=== PATIENT | female | born 1995 | race Hispanic/Latino ===

== ENCOUNTER 2019-07-03 12:42 | Outpatient (CLI) | payer OTHER ==
[~2019-07-03] VITALS: Ht 167.6 cm; Wt 73.2 kg
[2019-07-03 13:09] VITALS: BP 112/53
[2019-07-03] MEDS ORDERED: MAPA500T2 PO (13:38)
[2019-07-03] MEDS ORDERED: PRENTAB9 PO (13:38)
[2019-07-03] MEDS ORDERED: ACETAMINOPHEN 500 MG TAB PO PRN (13:45)
[2019-07-03] MEDS ORDERED: diphenhydrAMINE 25 MG CAP PO ONE (13:45)
[2019-07-03 14:53] VITALS: BP 116/59
[2019-07-03] MEDS ORDERED: METOCLOPRAMIDE 10 MG TAB PO ONE (15:00)
[2019-07-03 16:07] VITALS: BP 82/47
[2019-07-03 16:08] VITALS: BP 81/43
[2019-07-03 17:06] VITALS: BP 99/58
--- NOTE | 2019-07-03 18:18 | IPNPDOC ---
Text Note Date of Service The patient was seen on 07/03/19. NOTE patient is a 23 yo G1 @35+wks gestation presents with concern for DICK (12/13) x 1 week. patient has been taking tylenol as needed for DICK. patient denies ctx/lof/vb. +FM. vitals: normal NAD abd: nd, soft, nt fht: 140/mod lakeisha/pos accel/no decel toco: quiet patient was given acetamenophen, reglan and benadryl and allowed to rest. Patient was evaluated after rest and her DICK has improved. a/p patient is @ 35+wks gestation with DICK improved with medication. discussed hydration and stretching for DICK prevention. return precautions given. f/u with regular OB appointment. DO Nayla VS,Neville, I+O VS, Neville, I+O Vital Signs Date Time Temp Pulse Resp B/P (MAP) Pulse Ox O2 Delivery O2 Flow Rate FiO2 07/03/19 17:06 74 16 99/58 (72) 07/03/19 13:09 98.1 SAMANTHA WEAVER DO Jul 03, 2019 18:18
== END 2019-07-03 17:15 | disposition home or self-care (01) ==
LOC: M LDO 12:42
PROVIDERS: ATTEND Obstetrics & Gynecology
DX: O26.893 Other specified pregnancy related conditions, third trimester (principal); R51 Headache; Z3A.35 35 weeks gestation of pregnancy
CPT/HCPCS: 59025; G0378; G0463

== ENCOUNTER 2019-08-11 07:14 | Inpatient (IN) | payer OTHER ==
[2019-08-11] VITALS (8 sets, daily range): BP systolic 107–126; BP diastolic 52–80
[~2019-08-11] VITALS: Ht 167.6 cm; Wt 76.4 kg
[~2019-08-11 07:14] MED LIST: MAPA500T2 PO; PRENTAB9 PO
[2019-08-11] MEDS ORDERED: ASCO500T PO (07:28)
[2019-08-11] MEDS ORDERED: FERR325T3 PO (07:28)
[2019-08-11] MEDS ORDERED: LACTATED RINGER'S 1000 ML IV STA (08:01)
[2019-08-11 08:17] LABS: HEMOGLOBIN 11.4 g/dl (12.0-15.5); MEAN CORPUSCULAR HEMOGLOBIN 31.5 pg (27.0-33.0); MEAN CORPUSCULAR HGB CONC 34.5 g/dl (32.0-36.5); MEAN CORPUSCULAR VOLUME 91.2 fl (80.0-96.0); PLATELET COUNT, AUTOMATED 214 10^3/uL (150-450); RED BLOOD COUNT 3.62 10^6/uL (4.00-5.40); WHITE BLOOD COUNT 11.1 10^3/uL (4.0-10.0)
--- NOTE | 2019-08-11 08:29 | HPEPDOC ---
Obstetrical History & Physical General Date of Admission Aug 11, 2019 at 07:14 History of Present Illness Ms. Alcocer is a 24yo at 41wks gestation, EDC 04AUG2019 by LMP; she is being directly admitted for PDIOL. She reports +FM, denies LOF/VB; she does report some intermittent contractions that are currently nonpainful. Her is complicated by Anemia. She is GBS Negative, blood type A Positive. Hepatitis B is non-reactive per transfer records, but will draw a HBSAG lab with admission labs. 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 Surgical History: [place] teeth Family History Significant Family History: No pertinent family hx Social History Marital Status: Family situation: Spouse/partner home Psychosocial History: No pertinent psych hx * Smoker: non-smoker Alcohol: Denies Drugs: denies Imunizations Tdap status: current Influenza Status: current Allergies Coded Allergies: No Known Allergies (Unverified , 07/03/19) Medications Scheduled Ascorbic Acid (Ascorbic Acid) 500 Mg Tablet, 500 MG PO BID Ferrous Sulfate (Ferrous Sulfate) 325 Mg Tablet.dr, 325 MG PO BID No.137/Iron/Folic Acd ( Vitamin Tablet) 1 Each Tablet, 1 TAB PO DAILY Physical Examination Physical Examination GENERAL: Alert and oriented times three. ABDOMEN: Gravid and non-tender to touch. FETUS: Is vertex by sterile vaginal examination. HEART RATE: Regular rate. LUNGS: Nonlabored breathing. EXTREMITIES: No edema. Vital Signs/I&O O: VSS SVE at 0746: 2/60/-3, mid position FHR 140s, moderate variability, + accels, no decels noted CTX present, but irregular (>7 minutes apart, mild by palpation) Vital Signs Date Time Temp Pulse Resp B/P (MAP) Pulse Ox O2 Delivery O2 Flow Rate FiO2 08/11/19 07:37 99.0 86 18 107/56 (73) Pertinent Laboratoy Data Blood Type: A+ RBC Antibody Screen: Negative HIV: Negative Hepatitis B: Negative Rapid Plasma Reagin: Nonreactive Rubella: Immune Chlamydia/Gonorrhea: Negative Group B Streptococcus: Negative Quad Screen Test: Negative Cystic Fibrosis: Negative Glucose Tolerance Test: 115 Anatomy Ultrasound Ultrasound Date: Jul 23, 2019 (Growth Ultasound at 38+ weeks; EFW 27%tile; Pt was transfer in with records.) Placenta Location: Anterior Normal Anatomy: Yes Placenta Previa: No Estimated Weight (grams): 2815 Steroid Therapy Steroid Therapy: No Vaginal Examination Presentation: Cephalic presentation Assessment/Plan Assessment A: 24yo at 41weeks, admission for PDIOL; Category I FHT, GBS Negative, A Positive. Plan P: Admit to LND, counseled and consented for induction and delivery PIV start, admission labs drawn PO and IV hydration Start IOL with cytotec 50mcg buccal and Cervical ripening balloon CEFM x2 per protocol x2 hours, then intermittent monitoring with Category I FHT Can eat regular diet until pitocin Anticipate Consult with OB if indicated JAVY BARTH CNM Aug 11, 2019 08:29
[2019-08-11] MEDS ORDERED: miSOPROStol 50 MCG 1/2 TAB (S0191) PO ONE ×3 (09:00→17:00)
--- NOTE | 2019-08-11 16:51 | IPNPDOC ---
Text Note Date of Service The patient was seen on 08/11/19. NOTE 24yo at 41wks gestation, EDC 04AUG2019 admitted for IOL for pending post dates. induction with resendiz bulb placed at 0800, has had cytotec 50mcg x 2. now feeling mild contractions. vitals: normal NAD FHT: 140/mod lakeisha/pos accel/no decel toco: irregular ctx a/p patient not in labor. continue with cytotec and resendiz bulb for cervical ripening. reassess for redosing of cytotec 4hrs from last dose. DO Nayla VS,Mehulbone, I+O VS, Fishbone, I+O Laboratory Tests 08/11/19 08:08 Vital Signs Date Time Temp Pulse Resp B/P (MAP) Pulse Ox O2 Delivery O2 Flow Rate FiO2 08/11/19 14:49 99.5 86 126/56 (79) 08/11/19 10:35 18 SAMANTHA WEAVER DO Aug 11, 2019 16:51
[2019-08-11] MEDS ORDERED: LR 1,000 ML IV SCH (18:55)
[2019-08-11] MEDS ORDERED: OXYTOCIN DRIP 30 UNITS in IV 1 EA IV SCH (19:00)
[2019-08-11] MEDS ORDERED: FENTANYL 2MCG/ML ROPIVACAINE 0.2% IN 0.9% NACL 100ML IVBAG As Ordered ONE (20:21)
[2019-08-11] MEDS ORDERED: FENTANYL/ROPIVACAINE/NACL BAG 100 ML EPIDURAL SCH (21:45)
[2019-08-11] MEDS ORDERED: EPIDURAL COMMENT XX SCH (21:45)
[2019-08-11] MEDS ORDERED: LACTATED RINGER'S 1000 ML IV PRN (21:45)
[2019-08-11] MEDS ORDERED: REFRIGERATOR IV KEYS XX PRN (21:45)
[2019-08-11] MEDS ORDERED: ePHEDrine SULFATE 25 MG/5 ML(5MG/ML) SYRINGE IV PRN (21:45)
[2019-08-11] MEDS ORDERED: ONDANSETRON 4MG/2ML VIAL (J2405) IV PRN (21:45)
[2019-08-11] MEDS ORDERED: NALOXONE INJ 0.4 MG/1 ML VIAL (J2310) IV PRN (21:45)
[2019-08-11] MEDS ORDERED: EPIDURAL/PCA KEYS XX PRN (21:45)
[2019-08-11] MEDS ORDERED: diphenhydrAMINE INJ 50MG/ML VIAL (J1200) IV PRN (21:45)
--- NOTE | 2019-08-12 00:07 | IPNPDOC ---
Text Note Date of Service The patient was seen on 08/12/19. NOTE patient comfortable with epidural. pit: 2mU vitals: reviewed, normal nad abd: nt fht: 140/mod lakeisha/pos accel/no decel toco: ctx q 2-3mins ce: c/c/0, bulging bag a/p patient in second stage of labor. allow for passive descent for 1 hr. will recheck, arom if station has not changed. VS,Fishbone, I+O VS, Fishbone, I+O Laboratory Tests 08/11/19 08:08 Vital Signs Date Time Temp Pulse Resp B/P (MAP) Pulse Ox O2 Delivery O2 Flow Rate FiO2 08/11/19 17:08 99.1 75 18 122/80 (94) I&O- Last 24 Hours up to 6 AM 08/12/19 06:00 Intake Total 1100 ml Balance 1100 ml SAMANTHA WEAVER DO Aug 12, 2019 00:07
--- NOTE | 2019-08-12 02:05 | DNPDOC ---
[facility] Delivery Note Delivery Note DATE OF DELIVERY: 12Aug2019 PREDELIVERY DIAGNOSIS: 41+1/7 weeks' gestation and labor. 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 Moris DO ANESTHESIA: epidural ESTIMATED BLOOD LOSS: 300cc. FINDINGS: 6 pound 11 ounce, 3030 gm, male infant, Score 8/9, . DELIVERY SUMMARY: Patient with epidural for pain management. With good maternal effort, bab delivered OA, restituted ROT. anterior shoulder delivered, followed by posterior shoulder, body delivered with ease. baby placed on maternal abdomen. Cord clamped x 2 and cut by FOB. baby brought to warmer for suction due to meconium. Pitocin bolus started. Placenta delivered spontaneously. fundus massaged firm. inspection reveals second degree midline laceration and left labia tear repaired in the normal fashion. Baby and mother bonding when I left the room. SAMANTHA WEAVER DO Aug 12, 2019 02:05
[2019-08-12] MEDS ORDERED: OXYTOCIN DRIP 30 UNITS in IV 1 EA IV SCH (05:41)
[2019-08-12] MEDS ORDERED: ACETAMINOPHEN 500 MG TAB PO PRN (05:45)
[2019-08-12] MEDS ORDERED: ACETAMINOPHEN TAB 650MG DOSE (2X325MG) PO PRN (05:45)
[2019-08-12] MEDS ORDERED: IBUPROFEN 800 MG TAB PO PRN (05:45)
[2019-08-12] MEDS ORDERED: MEASLES,MUMPS,RUBELLA VACCINE INJ (MMR-II) (90707) SC SCH (05:45)
[2019-08-12] MEDS ORDERED: DIBUCAINE 1% OINTMENT 30GM TOP PRN (05:45)
[2019-08-12] MEDS ORDERED: DOCUSATE SODIUM 100 MG CAP PO PRN (05:45)
[2019-08-12] MEDS ORDERED: RHOGAM 300 MCG (1500 IU) INJ (J2790) IM SCH (05:45)
[2019-08-12 06:21] VITALS: BP 109/65
[2019-08-12] MEDS: PRENATAL VITAMINS CHEWABLE TABLET PO SCH (08:36)
[2019-08-12] MEDS: FERROUS SULFATE 325MG TAB PO SCH (08:36)
[2019-08-12 17:33] VITALS: BP 98/53
[2019-08-13 06:00] VITALS: BP 104/58
--- NOTE | 2019-08-13 09:07 | IPN ---
DATE: 08/13/2019 day 1. 24-year-old 1, now para 1, admitted at 41 weeks of gestation for induction of labor being late post term. She had an epidural in place, delivered spontaneously a live female infant 6 pounds, 11 ounces, 3030 grams, scores of eight and nine at 1 and 5 minutes respectively. She sustained a second-degree tear which was oversewn in the usual fashion. On her first day, blood pressure is 104/58, respirations 17, pulse 73, temperature 97.9. Her admitting hemoglobin was 11.4, hematocrit 33.0 and platelets were 214. We discussed phlebitis, cystitis, mastitis, endometritis and cellulitis, diet, exercise pain management, perineal, breast and wound care. Meds will be dispensed at discharge. PHYSICAL EXAMINATION: On examination, she is normocephalic, atraumatic. Neck full range of motion. Pupils equal and reactive to light. Distal pulses are symmetric. No evidence of deep vein thrombosis (DVT), pulmonary embolism (PE), or superficial phlebitis. Chest is clear bilaterally to the bases. No wheezes or rhonchi. No CVA tenderness. Abdomen is soft. She was 2 below, four quadrant bowel sounds are noted. Lochia is moderate. Perineum is healing. She is not complaining of any rashes, lesions or pruritus, or arthralgia. No joint pain. She has no incontinence, urgency or frequency . No nausea, vomiting, diarrhea or constipation. In summary, we have a term gestation, delivered a live female , planning on discharge for tomorrow.
[2019-08-13] MEDS: PRENATAL VITAMINS CHEWABLE TABLET PO SCH (09:43)
[2019-08-13] MEDS: FERROUS SULFATE 325MG TAB PO SCH (09:43)
--- NOTE | 2019-08-13 12:28 | IPNPDOC ---
Text Note Date of Service NOTE Nurse called and relayed that patient is requesting to be discharged early today instead of tomorrow. Per nurse, pediatrics is okay discharging baby as long as mom can go home. patient delivered on 07nov @01:27. Her course is uncomplicated and patient clinically well to be discharged. VS,Fishbone, I+O VS, Fishbone, I+O Vital Signs Date Time Temp Pulse Resp B/P (MAP) Pulse Ox O2 Delivery O2 Flow Rate FiO2 08/13/19 06:00 97.9 73 17 104/58 (73) 08/12/19 06:21 99 SAMANTHA WEAVER DO Aug 13, 2019 12:28
--- NOTE | 2019-08-13 12:28 | OBDS ---
[facility] Obstetrical Discharge Sum. Obstetrical Discharge Summary : 1 Term: 1 Pre-term: 0 Abortions: 0 Livin VDRL: Non-Reactive Rh: Positive Rubella: Immune Infant Sex: Female Infant Weight: pounds (6), ounces (11), grams (3030) Anesthesia: Regional Anesthesia A/P, Post Course List any complications Admission diagnosis: Gravid at 41weeks gestation Discharge diagnosis: spontaneous vaginal delivery 2nd degree vaginal laceration repaired Condition at Discharge: stable Discharge Instructions: Home Activity: as tolerated Diet: regular Medications: filled at [facility] Follow-up: 6-8wks visit Hospital course: Patient admitted for induction of labor for pending post dates at 41weeks gestation. Patient progressed to delivery vaginally. course uncomplicated and patient meets discharge criteria on day #1. SAMANTHA WEAVER DO Aug 12, 2019 02:12
== END 2019-08-13 14:40 | disposition home or self-care (01) | DRG 807 ==
LOC: M LDI 07:14 → M OBS 08-12 04:00
PROVIDERS: ADMIT Registered Nurse Maternal Newborn; ATTEND Obstetrics & Gynecology
PROC: 3E0P7GC Introduction of Other Therapeutic Substance into Female Reproductive, Via Natural or Artificial Opening (ICD-10-PCS; 2019-08-11)
PROC: 10E0XZZ Delivery of Products of Conception, External Approach (ICD-10-PCS; principal; 2019-08-12)
PROC: 0KQM0ZZ Repair Perineum Muscle, Open Approach (ICD-10-PCS; 2019-08-12)
PROC: 0HQ9XZZ Repair Perineum Skin, External Approach (ICD-10-PCS; 2019-08-12)
DX: O48.0 Post-term pregnancy (principal); Z37.0 Single live birth; Z3A.41 41 weeks gestation of pregnancy; O99.02 Anemia complicating childbirth; D64.9 Anemia, unspecified; O70.1 Second degree perineal laceration during delivery; O70.0 First degree perineal laceration during delivery